=== PATIENT | male | born 2000 | race Caucasian/White ===

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

== ENCOUNTER 2018-03-08 19:12 | Emergency (ER) | payer OTHER ==
[2018-03-08 21:35] LABS: URINE PH (Dip) POC 6.5 (5.0-8.5)
[2018-03-08 21:35] LABS: URINE BLOOD (Dip) POC Negative (NEGATIVE); URINE GLUCOSE (Dip) POC Negative (NEGATIVE); URINE KETONES (Dip) POC Negative (NEGATIVE); URINE LEUKOCYTE EST (Dip) POC Negative (NEGATIVE); URINE NITRITE (Dip) POC Negative (NEGATIVE); URINE TOTAL PROTEIN POC Negative (NEGATIVE)
[2018-03-08 21:41] LABS: URINE PH (Dip) POC 6.5 (5.0-8.5)
[2018-03-08 21:41] LABS: URINE BLOOD (Dip) POC Negative (NEGATIVE); URINE GLUCOSE (Dip) POC Negative (NEGATIVE); URINE KETONES (Dip) POC Negative (NEGATIVE); URINE LEUKOCYTE EST (Dip) POC Negative (NEGATIVE); URINE NITRITE (Dip) POC Negative (NEGATIVE); URINE TOTAL PROTEIN POC Negative (NEGATIVE)
== END 2018-03-08 22:08 | disposition home or self-care (01) ==
LOC: FTE 19:12
DX: N48.89 Other specified disorders of penis (principal)
CPT/HCPCS: 81003; 99282

== ENCOUNTER 2018-05-31 20:20 | Emergency (ER) | payer OTHER | END 2018-06-01 00:21 | disposition home or self-care (01) | LOC: FTE 06-01 00:21 | DX: J30.9 Allergic rhinitis, unspecified (principal); H10.13 Acute atopic conjunctivitis, bilateral | CPT/HCPCS: 99283 ==